=== PATIENT | female | born 1985 | race Caucasian/White ===

== ENCOUNTER 2016-08-01 09:51 | Inpatient (IN) | payer OTHER ==
[2016-08-01] VITALS (19 sets, daily range): BP systolic 118–149; BP diastolic 59–103
[~2016-08-01] VITALS: Ht 165.1 cm; Wt 99.1 kg
[2016-08-01 11:18] LABS: EOSINOPHIL (%) 0.1 % (0-5); HEMATOCRIT 34.3 % (36.0-46.0); IMMATURE GRANULOCYTE (%) 1.1 % (0.0-0.7); IMMATURE GRANULOCYTE COUNT 0.2 K/uL; LYMPHOCYTE COUNT 2.1 K/uL (1.0-2.8); MCH 28.9 PG (29.0-34.0); MCHC 34.4 G/DL (30.0-36.0); MCV 84.1 FL (83-99); MEAN PLAT.VOLUME 11.4 uM^3 (9.5-12.4); MONOCYTE COUNT 0.7 K/uL (0-0.8); NEUTROPHIL (%) 78.5 % (45-76); PLATELET COUNT 144 K/uL (156-360); RED BLOOD COUNT 4.08 M/uL (3.80-5.20)
[2016-08-01] MEDS ORDERED: METHADONE10 MG PO (11:20)
[2016-08-01 12:51] LABS: ALKALINE PHOSPHATASE 149 IU/L (3-129); ANION GAP 12 MEQ/L (2-14); CHLORIDE 106 MEQ/L (99-109); GFR ESTIMATE (CALCULATED) > 59 mL/min/; GLUCOSE 94 mg/dL (70-99); POTASSIUM 3.9 MEQ/L (3.7-5.4); SAMPLE HEMOLYSIS CHECK 0; SAMPLE ICTERIC CHECK 0; SAMPLE LIPEMIA CHECK 0; SODIUM 137 MEQ/L (136-147); TOTAL BILIRUBIN 0.4 MG/DL (0.0-1.0); UREA NITROGEN (BUN) 5 mg/dL (9-23)
[2016-08-01 13:30] LABS: LACTATE DEHYDROGENASE 139 IU/L (20-246); URIC ACID 6.2 mg/dL (3.1-9.2)
[2016-08-01 13:58] LABS: AMPHETAMINES QUANT VALUE 0 NG/ML; BARBITUATES QUANT VALUE 0 NG/ML; BENZODIAZEPINES QUANT VALUE 0 NG/ML; BENZODIAZEPINES, URINE SCREEN Negative (200 ng/mL); MARIJUANA QUANT VALUE 0 NG/ML; OPIATES QUANTITATIVE VALUE 0 NG/ML; PHENCYCLIDINE QUANT VALUE 0 NG/ML; UR CREATININE CONCENTRATION 116.5 MG/DL
[2016-08-01 22:02] LABS: BASE EXCESS -2.6 mEq/L (-3 to +3); BICARBONATE 24.6 mEq/L (22-26); CARBOXY HGB 0.5 % (0-5); COMMENTS - BLOOD GASES ARTERIAL; METHEMOGLOBIN 1.9 % (0-1.5); O2 FLOW 2 L/MIN; PCO2 50 mm Hg (35-45); PO2 < 28 mm Hg (80-100); SITE CORD
[2016-08-01 22:03] LABS: TOTAL RESP RATE 18 resp/min
[2016-08-01 22:07] LABS: BASE EXCESS -3.9 mEq/L (-3 to +3); BICARBONATE 21.6 mEq/L (22-26); METHEMOGLOBIN 1.8 % (0-1.5); pH 7.34 (7.35-7.45)
[2016-08-01 22:08] LABS: COMMENTS - BLOOD GASES VENOUS; O2 FLOW 2 L/MIN; PCO2 40 mm Hg (35-45); PO2 < 28 mm Hg (80-100); SITE CORD; TOTAL RESP RATE 18 resp/min
[2016-08-02 00:51] VITALS: BP 144/79
[2016-08-02 04:56] VITALS: BP 131/75
[2016-08-02 07:30] LABS: EOSINOPHIL (%) 0.1 % (0-5); HEMATOCRIT 27.1 % (36.0-46.0); IMMATURE GRANULOCYTE (%) 0.8 % (0.0-0.7); IMMATURE GRANULOCYTE COUNT 0.1 K/uL; INSTRUMENT ABS NEUTROPHIL CT 9.4 K/uL; LYMPHOCYTE COUNT 1.8 K/uL (1.0-2.8); MCHC 33.6 G/DL (30.0-36.0); MCV 86.3 FL (83-99); MONOCYTE (%) 8.4 % (3-12); NEUTROPHIL (%) 75.8 % (45-76); NEUTROPHIL COUNT 9.4 K/uL (1.8-6.4); PLATELET COUNT 109 K/uL (156-360); RBC DIS.WIDTH-CV 13.1 % (11.8-14.6); RBC DIS.WIDTH-SD 40.8 % (39-53); WHITE BLOOD COUNT 12.4 K/uL (4.1-10.2)
[2016-08-02 07:32] LABS: RED BLOOD COUNT 3.14 M/uL (3.80-5.20)
[2016-08-02 09:01] VITALS: BP 136/85
[2016-08-02 10:49] VITALS: BP 130/79
[2016-08-03 08:31] VITALS: BP 132/65
[2016-08-03 12:31] VITALS: BP 140/87
[2016-08-03 15:00] VITALS: BP 134/88
[2016-08-03 19:00] VITALS: BP 127/82
[2016-08-03 23:00] VITALS: BP 124/79
[2016-08-04 07:08] VITALS: BP 139/81
[2016-08-04 10:07] VITALS: BP 133/85
[2016-08-04] MEDS ORDERED: FERROUS SULFAT325 MG PO (14:25)
[2016-08-04] MEDS ORDERED: ENDOCET 5-3251 EACH PO (14:25)
[2016-08-04] MEDS ORDERED: IBUPROFEN800 MG PO (14:25)
== END 2016-08-04 15:29 | DRG 765 ==
LOC: LDRP-OP 09:51 → 2WEST 09:52 → LDRP-OP 08-28 13:23
PROVIDERS: Advanced Practice Midwife; Obstetrics & Gynecology
DX: O76 Abnormality in fetal heart rate and rhythm complicating labor and delivery (principal); O48.0 Post-term pregnancy; Z3A.40 40 weeks gestation of pregnancy; Z37.0 Single live birth; O13.4 Gestational [pregnancy-induced] hypertension without significant proteinuria, complicating childbirth; O99.02 Anemia complicating childbirth; D62 Acute posthemorrhagic anemia; O36.1930 Maternal care for other isoimmunization, third trimester, not applicable or unspecified; O99.324 Drug use complicating childbirth; F11.20 Opioid dependence, uncomplicated; O99.214 Obesity complicating childbirth; E66.9 Obesity, unspecified; Z68.30 Body mass index [BMI] 30.0-30.9, adult; O99.334 Smoking (tobacco) complicating childbirth; F17.200 Nicotine dependence, unspecified, uncomplicated
CPT/HCPCS: 36600; 80053; 80306 90; 82570; 82803; 83615; 84156; 84550; 85025; 86870; 86900; 86901; 86905; C1755; J0690; J1170; J1200; J1885; J2175; J2210; J2250; J2274; J3010; J7120